=== PATIENT | female | born 1945 | race Caucasian/White ===

== ENCOUNTER → 2023-06-12 12:24 | Outpatient (REF) | payer OTHER, SELFPAY ==
[2023-06-12 13:45] LABS: HDL Cholesterol 40 mg/dl; LDL Cholesterol, Calculated 47 mg/dl; Total Cholesterol 105 mg/dl (50-199); Triglyceride 92 mg/dl (10-149); Very Low Density Lipoprotein 18 mg/dl (0-30)
== END ==
LOC: OLABN 12:24
PROVIDERS: ATTENDING PHYSICIAN Student in an Organized Health Care Education/Training Program
DX: E78.5 Hyperlipidemia, unspecified (principal)
CPT/HCPCS: 36415; 80061

== ENCOUNTER → 2023-07-24 11:50 | Outpatient (REF) | payer OTHER, SELFPAY ==
[2023-07-24 12:37] LABS: HDL Cholesterol 45 mg/dl; LDL Cholesterol, Calculated 55 mg/dl; Total Cholesterol 118 mg/dl (50-199); Triglyceride 94 mg/dl (10-149); Very Low Density Lipoprotein 18 mg/dl (0-30)
== END ==
LOC: OLABN 11:50
PROVIDERS: ATTENDING PHYSICIAN Student in an Organized Health Care Education/Training Program
DX: E78.5 Hyperlipidemia, unspecified (principal)
CPT/HCPCS: 36415; 80061

== ENCOUNTER → 2023-08-29 09:33 | Outpatient (REF) | payer OTHER, SELFPAY ==
[2023-08-29 10:34] LABS: HDL Cholesterol 45 mg/dl; LDL Cholesterol, Calculated 68 mg/dl; Total Cholesterol 131 mg/dl (50-199); Triglyceride 92 mg/dl (10-149); Very Low Density Lipoprotein 18 mg/dl (0-30)
== END ==
LOC: OLABN 09:33
PROVIDERS: ATTENDING PHYSICIAN Student in an Organized Health Care Education/Training Program
DX: E78.5 Hyperlipidemia, unspecified (principal)
CPT/HCPCS: 36415; 80061

== ENCOUNTER 2023-11-01 18:36 | Observation (INO) | payer MEDICARE, OTHER, SELFPAY ==
[2023-11-01] VITALS (21 sets, daily range): BP systolic 114–195; BP diastolic 56–116; PULSE 95–97
[2023-11-01 13:59] LABS: Glucose - Point of Care 82 mg/dl (70-99)
[2023-11-01 14:27] LABS: % Basophils 0.8 % (0-2); % Eosinophils 3.4 % (0-6); % Immature Granulocytes 0.4 % (0-0.5); % Lymphocytes 39.3 % (20.5-51.1); % Monocytes 8.6 % (1.7-9.3); % Neutrophils 47.5 % (42.2-75.2); Absolute Basophils 0.1 10^3/uL (0-0.2); Absolute Eosinophils 0.3 10^3/uL (0-0.7); Absolute Lymphocytes 3.6 10^3/uL (1.2-3.4); Absolute Monocytes 0.8 10^3/uL (0.1-0.6); Absolute Neutrophils 4.4 10^3/uL (1.4-6.5); Hematocrit 39.3 % (37.0-47.0); Hemoglobin 13.4 g/dL (12.0-16.0); Mean Corp Hgb Conc. 34.1 g/dL (33.0-37.0); Mean Corpuscular Hgb 30.2 pg (27.0-31.0); Mean Corpuscular Volume 88.5 fL (81.0-99.0); Mean Platelet Volume 10.4 fL (7.4-10.4); Nucleated Red Blood Cells % 0 %; Platelet Count 244 10^3/uL (130-400); Red Blood Cell Count 4.44 10^6/uL (4.20-5.40); Red Cell Dist. Width 13.1 % (11.5-14.5); White Blood Cell Count 9.2 10^3/uL (4.8-10.8)
[2023-11-01 14:33] LABS: Urine Albumin Trace (Neg - Trace); Urine Bilirubin Negative (Negative); Urine Character Slightly Cloudy (Clear); Urine Color Yellow; Urine Glucose Negative (Negative); Urine Ketone Negative (Negative); Urine Leukocyte 2+ (Negative); Urine Nitrite Negative (Negative); Urine Occult Blood 3+ (Negative); Urine Specific Gravity 1.015 (<1.030); Urine Urobilinogen Negative (Neg - 1+)
[2023-11-01 14:38] LABS: Urine Squamous Cell 0-2 /LPF (Few)
[2023-11-01 14:39] LABS: Urine Bacteria Moderate (Negative); Urine White Cell 50-60 /HPF (0-5)
[2023-11-01 14:47] LABS: Blood Urea Nitrogen 30 mg/dl (7-17); Carbon Dioxide 24 mmol/L (22-30); Chloride 106 mmol/L (98-107); Glucose 75 mg/dl (70-99); Sodium 138 mmol/L (135-145); eGFR > 60.00
--- NOTE | 2023-11-01 15:03 | ED.GENMED ---
History of Present Illness
General
Chief Complaint: Fainting/Passed Out
Source: family, ambulance crew and half-way records
Exam Limitations: dementia
Time Seen by Provider: 11/01/23 14:34
History of Present Illness
History of Present Illness:
78 Y/O F with h/o CVA L sided weakness, alzheimers dementia, dm, htn, CAD s/p PCI, CHF
here with confusion and possible syncope
pt was apparently in her wheelchair witnessed to have her head roll back and was unresponsive, apparently her hr dropped down low and she was incontinent, but has h/o incontiencne
here pt has eyes closed but arouses to stimuli and answers some questions
she offers noc omplaints
cannot recall what happened
she denies pain
pt has had similar episode previously when she had UTI in 07/2023
Past History
Past History
ED Past Medical History: CVA, HTN, Hypercholesterolemia and Other (Dementia)
ED Past Surgical History: None
Social History
Tobacco: Non-smoker
Alcohol: None
Review of Systems
Review of Systems
Allergies reviewed?: Yes
All Other Systems: Not applicable
Phy Exam
Physical Exam
Physical Exam:
GENERAL: Alert , in no apparent distress, spleeping, easily aroused; responds to some questions, does not follow all commands, selective
EYE: pupils equal and reactive
NECK: Supple
ENT: o/p clr, mmm.
CARDIAC: Regular rate and rhythm .
LUNGS: Clear breath sounds bilaterally, no acute respiratory distress, no wheezes/rales/rhonchi
ABDOMEN: Soft, without focal tenderness, no r/g, no cvat, normal bowel sounds
NEUROLOGICAL: Alert and oriented x 1, pt would not cooperate for some questions; L sided hemiplegia/weakness
SKIN: Warm and dry, skin intact.
MUSCULOSKELETAL: No edema, well perfused. neg joel's sign
PSYCH: Normal and appropriate interaction.
Course
Orders/Labs/Results
Orders:
Orders
11/01/23 14:11
Electrocardiogram (*1) Urgent
Reason for Study: Vertigo / Dizzy
11/01/23 14:12
EKG- Treatment ONCE
11/01/23 14:14
Basic Metabolic Panel Urgent
Complete Blood Count/With Diff Urgent
Urinalysis Reflex To Culture Urgent
Date Specimen was Collected: 11/01/23
Time Specimen was Collected: 14:13
Urine Microscopic Reflex Cult Urgent
Urine Culture Urgent
MING Source: U
Specimen Description:
Date Specimen was Collected: 11/01/23
Time Specimen was Collected: 14:13
11/01/23 15:11
CefTRIAXone [Rocephin] 1,000 mg IV NOW STA
11/01/23 15:14
Troponin I Urgent
11/01/23 15:51
Potassium Urgent
Abnormal Lab Results
11/01/23
14:14
Absolute Lymphs (auto) 3.6 H 10^3/uL
(1.2-3.4)
Absolute Monos (auto) 0.8 H 10^3/uL
(0.1-0.6)
BUN 30 H mg/dl
(7-17)
Ur Occult Blood Reflex 3+ A
(Negative)
Leukocyte Esterase Rfl 2+ A
(Negative)
Urine RBC 3-6 A /HPF
(0-2)
Urine WBC (Reflex) 50-60 A /HPF
(0-5)
Urine Bacteria (Reflex) Moderate A
(Negative)
11/01/23 14:14
11/01/23 15:51
Vital Signs
Initial and Last Documented VS:
Initial Vital Signs
Temp Pulse Resp BP Pulse Ox
97.5 F 91 16 124/98 98
11/01/23 13:56 11/01/23 13:56 11/01/23 13:56 11/01/23 13:56 11/01/23 13:56
Last Documented Vital Signs
Temp Pulse Resp BP Pulse Ox
97.5 F 73 14 133/71 97
11/01/23 13:56 11/01/23 16:15 11/01/23 16:15 11/01/23 16:15 11/01/23 16:15
MDM/Problems Addressed
Differential Diagnosis Includes:
syncope, uti, sepsis, dysrhythmia
MDM/Problems Addressed:
8 y/o F from [facility], witnessed syncope while in chair, bradycardic following it p0er EMS,
pt has dementia, is at baseline, normal vitals now;
ekg with RBBB and some t wave inv which appear chronic when i look back to previous EKG (not most recent but prior)
trop neg
straight cath urine + for inection
pt has had previous TME wih UTI before
will admit, iv abx, tele
daughter at bedside, consents to admission
*Critical Care Note
Total Time (30-74mins, 75-104mins- exclusive of procedures): Not Applicable
ED Attending Note
-
Portions of this chart may have been created with voice recognition software.� Occasional wrong word or��sound alike� substitutions may have occurred due to the inherent limitations of voice recognition software.
Discharge Plan
Departure
Patient Disposition: Admit
Date of Disposition: 11/01/23
Time of Disposition: 16:22
Admit to: Telemetry
Presentation/result/management discussed w/ accepting MD/DO: Hospitalist
Condition: Fair
Covid-19: Not Applicable
Discharge Problem:
Syncope, UTI (urinary tract infection)
Prescriptions:
No Action
acetaminophen 325 MG tablet
650 mg PO Q4HPRN PRN (Reason: mild pain/fever>100.4)
clopidogrel 75 MG tablet
75 mg PO DAILY
magnesium hydroxide 30 ML suspension
30 ml PO HSPRN PRN (Reason: lack of bm)
bisacodyl [OneLAX Bisacodyl] 10 MG suppository
10 mg WA DAILYPRN PRN (Reason: if mom ineffective)
memantine 10 MG tablet
10 mg PO DAILY
duloxetine 30 MG capsule,delayed release(DR/EC)
30 mg PO DAILY
diclofenac sodium 100 GRAM/TUBE gel
1 applic topical BID
atorvastatin 40 MG tablet
40 mg PO QPM 0RF
acetaminophen 650 MG suppository
650 mg WA Q4HPRN PRN (Reason: BUTTS, mild pain, or temp >100.4F) 0RF
famotidine 20 MG tablet
20 mg PO DAILY
metoprolol tartrate 50 MG tablet
25 mg PO BID
insulin lispro 100 UNIT/ML solution
0 unit SC .SLIDING SCALE QID
cefdinir 300 MG capsule
300 mg PO Q12 Qty: 8 0RF
furosemide 20 MG tablet
20 mg PO MOWEFR Qty: 0 0RF
insulin glargine [Lantus Solostar U-100 Insulin] 300 UNITS/3 ML insulin pen
10 units SC HS Qty: 0 0RF
Referrals:
Oscar Turner DO [Family Provider] -
Interventions
Interventions:
*Risk Screen - Suicide Last Done: 11/01/23 13:56
*General Assessment Last Done: 11/01/23 13:56
*Neglect/Abuse Screening Last Done: 11/01/23 13:56
ED- Cardiac Assessment Last Done: 11/01/23 14:27
ED- Neurological Assessment Last Done: 11/01/23 14:27
Discharge Date and Time
Print Language: CZECH
[2023-11-01] MEDS: ROCEPHIN 1000 MG IV (15:14)
--- NOTE | 2023-11-01 15:20 | PHANOTE ---
MED REC NOTE- Spoke Etelvina at [facility], she going to fax patient medication list over
[2023-11-01 16:16] LABS: Potassium 4.1 mmol/L (3.5-5.1)
[2023-11-01 16:38] LABS: Troponin I < 0.012 ng/ml
--- NOTE | 2023-11-01 18:17 | HPS.HSE ---
Family Physician
-
Family Physician: Oscar Turner DO
Chief Complaint
-
Syncope episode
History of Present Illness
Patient is 78-year-old female with past medical history of CVA, dementia, type 2 diabetes, essential hypertension, congestive diastolic congestive heart failure, hyperlipidemia was sent in from alf after was noted to having witnessed
syncope. Patient dementia unable to provide any detail no family at bedside providing any history. According to ER documentation patient was sitting in wheelchair when patient had rolled backward and was unresponsive for unknown period of time.
Heart rate was noted to be low and having some incontinence. Patient was able to regain consciousness afterward.
Patient resting comfortably in bed and not able to provide any information as mentioned above
Medical History
Past Medical History
Past Medical History: Reports Other
Additional Past Medical History:
history of CVA, dementia, type 2 diabetes, essential hypertension, congestive diastolic congestive heart failure, hyperlipidemia
Past Surgical History: Reports Other
Social History
Unable to obtain full social history at this time due to: Other (Dementia)
Family History
Family History: Unable to Obtain (Dementia)
Allergies / Home Medications
Allergies reflects when Allergies were last updated in [employer].
Home Medications with original date entered in [employer]
Allergy/Medication List:
Allergies
Allergy/AdvReac Type Severity Reaction Status Date / Time
Penicillins Allergy Rash Verified 08/07/21 13:12
Home Medications
acetaminophen 325 mg tablet 650 mg PO Q4HPRN PRN mild pain/fever>100.4 07/13/21
bisacodyl 10 mg rectal suppository (OneLAX Bisacodyl) 10 mg MO DAILYPRN PRN if mom ineffective 07/13/21
clopidogrel 75 mg tablet 75 mg PO DAILY Blood clot prevention/tx 07/13/21
diclofenac sodium 1 % topical gel 1 applic topical BID both knees FOR PAIN 07/13/21
duloxetine 30 mg capsule,delayed release 30 mg PO DAILY Mental Health/Anxiety 07/13/21
magnesium hydroxide 400 mg/5 mL oral suspension 30 ml PO HSPRN PRN lack of bm 07/13/21
memantine 10 mg tablet 10 mg PO DAILY Mental Health/Anxiety 07/13/21
acetaminophen 650 mg rectal suppository 650 mg MO Q4HPRN PRN BUTTS, mild pain, or temp >100.4F 07/17/21
atorvastatin 40 mg tablet 40 mg PO QPM 07/17/21
famotidine 20 mg tablet 20 mg PO DAILY Gastrointestinal issue 08/07/21
insulin lispro 100 unit/mL subcutaneous solution 0 unit SC .SLIDING SCALE QID Diabetes 08/07/21
metoprolol tartrate 50 mg tablet 25 mg PO BID Blood pressure 08/07/21
cefdinir 300 mg capsule 300 mg PO Q12 #8 caps 08/10/21
furosemide 20 mg tablet 20 mg PO MOWEFR Fluid retention/Swelling ##0 08/10/21
insulin glargine 100 unit/mL (3 mL) subcutaneous pen (Lantus Solostar U-100 Insulin) 10 units (0.1 mL) SC HS Diabetes ##0 08/10/21
Review of Systems
-
Unable to obtain full review of systems at this time due to: Dementia
Physical Exam
Vital Signs
Vital Signs
Temp Pulse Resp BP Pulse Ox
97.5 F 89 18 138/94 96
11/01/23 13:56 11/01/23 17:45 11/01/23 17:45 11/01/23 17:45 11/01/23 17:30
Physical Exam
General: No Apparent Distress
HEENT: NormoCephalic, Moist mucous membranes and Atraumatic
Respiratory: Clear
Cardiac: S1/S2 and Regular Rhythm; No Murmur or Rub
GI: Soft, Non Tender, Non Distended and Normal Bowel Sounds; No Organomegaly
Musculoskeletal: No Clubbing and No Cyanosis
Skin: No Rash
Neuro: Awake, Alert, Oriented and Nonfocal/grossly intact
Laboratory Results
-
11/01/23 14:14
11/01/23 15:51
Laboratory Results
Total Bilirubin Cancelled 11/01/23 14:14
AST Cancelled 11/01/23 14:14
ALT Cancelled 11/01/23 14:14
Alkaline Phosphatase Cancelled 11/01/23 14:14
Troponin I < 0.012 ng/ml 11/01/23 15:14
Impression/Plan
-
1. Syncope
-Patient had syncope, presuming brief while sitting in wheelchair.
-Reported heart rate to be slow at the time
-Patient on metoprolol hold for the night
-Check orthostatic vitals for supine and sitting position
-Monitor on telemetry overnight
2. Type II DM
-Maintain on insulin sliding scale
3. Chronic diastolic ingestive heart failure
-No signs of exacerbation
-continue lasix home dose
dementia
Essential HTN
hyperlipidemia
DVT PPX -heparin subq
Full code
Total time spent : 77 mins
I personally saw and examined the patient.
I have reviewed all diagnostic interpretations and treatment plans as written.
Time includes patient management by me, time spent at the patients bedside, time to review lab and imaging results, discussing patient care, documentation in the medical record, and time spent with the family or caregiver and discussing care plan
with RN/Consultants.
[2023-11-01 21:44] LABS: Glucose - Point of Care 169 mg/dl (70-99)
[2023-11-01] MEDS: HEPARIN 5000 UNITS SC (21:52)
[2023-11-01] MEDS: LANTUS 0.1 UNITS SC (21:52)
[2023-11-02] VITALS (8 sets, daily range): BP systolic 104–164; BP diastolic 52–86; PULSE 81–90
[2023-11-02 06:01] LABS: Hematocrit 34.2 % (37.0-47.0); Mean Corp Hgb Conc. 35.1 g/dL (33.0-37.0); Mean Corpuscular Hgb 30.4 pg (27.0-31.0); Mean Corpuscular Volume 86.6 fL (81.0-99.0); Mean Platelet Volume 10.6 fL (7.4-10.4); Platelet Count 225 10^3/uL (130-400); Red Blood Cell Count 3.95 10^6/uL (4.20-5.40); Red Cell Dist. Width 13.1 % (11.5-14.5); White Blood Cell Count 7.1 10^3/uL (4.8-10.8)
[2023-11-02 06:14] LABS: Blood Urea Nitrogen 25 mg/dl (7-17); Calcium 9.6 mg/dl (8.4-10.2); Carbon Dioxide 26 mmol/L (22-30); Chloride 106 mmol/L (98-107); Estimated Creatinine Clearance 55 ml/min; Glucose 115 mg/dl (70-99); Potassium 4.1 mmol/L (3.5-5.1); Sodium 137 mmol/L (135-145); eGFR > 60.00
[2023-11-02 07:58] LABS: Glucose - Point of Care 132 mg/dl (70-99)
[2023-11-02] MEDS: NOVOLOG FLEXPEN-LOW RESISTANCE SC (08:01)
[2023-11-02] MEDS: PEPCID 20 MG PO (08:18)
[2023-11-02] MEDS: HEPARIN 5000 UNITS SC ×2 (08:18→21:47)
[2023-11-02] MEDS: CYMBALTA DELAYED RELEASE 30 MG PO (08:19)
[2023-11-02] MEDS: NAMENDA 10 MG PO (08:19)
[2023-11-02] MEDS: PLAVIX 75 MG PO (08:19)
[2023-11-02 11:38] LABS: Glucose - Point of Care 230 mg/dl (70-99)
[2023-11-02] MEDS: NOVOLOG FLEXPEN-LOW RESISTANCE 2 UNITS SC (11:54)
--- NOTE | 2023-11-02 12:30 | W.PN.HOSP.TC ---
Addendum entered and electronically signed by Kevin Michel MD 11/02/23 12:41:
Seizures
-Patient had 1 more episode in the past when patient was sitting in wheelchair and similar episode of passing out happened
-Suspected seizure activity although no true GTCS is reported.
-Patient does have history of CVA and makes her prone to have CVA.
-Patient was having very infrequent episode and due to potential side effects did not wanted to be put on AED.
-I have discussed with daughter to follow-up with neurology in outpatient basis if patient have more frequent suspected seizure episode. She understands and agrees with the plan.
H/o CVA
-And had some residual weakness although did not able to regain full ambulatory capacity
-remains in wheelchair most of the time in facility
-will discontinue PT/OT eval if facility doesnt require before discharge.
Discussed with Daughter at Bedside.
Original Note:
Today's Communication/Plan
-
See note
Possible discharge to group home back again
Assessment / Plan
Assessment / Plan
1. Syncope
-Patient had syncope, presuming brief while sitting in wheelchair.
-Reported heart rate to be slow at the time in the group home
-Telemetry events reviewed, patient having sinus tachycardia, likely beta dorcas withdrawal. Resume back on home dose of Lopressor and monitor through night
-Continue checking orthostatic vitals from supine to sitting position. Last check was normal.
2. Type II DM
-Resume back on Lantus/Premeal NovoLog regimen from group home
-Maintain on insulin sliding scale
3. Chronic diastolic ingestive heart failure
-No signs of exacerbation
-continue lasix home dose
dementia
Essential HTN
hyperlipidemia
DVT PPX -heparin subq
Full code
Anticipated Discharge: Within 24 hours
Subjective/Interval History
-
Date of Service: November 02, 2023
No acute events reported overnight
Patient minimally tachycardic
Patient remains pleasantly disoriented
Objective Data
-
Labs:
Laboratory Results
11/02/23
05:18
WBC 7.1
Hgb 12.0
Hct 34.2 L
Plt Count 225
Sodium 137
Potassium 4.1
Chloride 106
Carbon Dioxide 26
BUN 25 H
Creatinine 0.8
Glucose 115 H
Calcium 9.6
Vital Signs:
Vital Signs
Temp Pulse Resp BP Pulse Ox
99.0 F 99 18 155/86 99
11/02/23 11:00 11/02/23 11:00 11/02/23 11:00 11/02/23 11:00 11/02/23 11:00
I&O
11/01/23 11/02/23 11/03/23
06:59 06:59 06:59
Intake Total 480 / 480
Balance 480 / 480
Review of Systems
-
Unable to obtain full review of systems at this time due to: Dementia
Physical Exam
-
General: No Apparent Distress and Comfortable
HEENT: Negative Oxygen
Respiratory: Clear to Auscultation
Cardiac: Regular Rhythm and S1/S2; Negative Murmur or Rub
GI: Soft, Nontender, Nondistended and Normal Bowel Sounds
Musculoskeletal: No Edema
Neuro: Awake, Alert, No Motor Deficits and Nonfocal/Grossly Intact
Psych: Calm
--- NOTE | 2023-11-02 12:53 | CM ---
Patient seen bedside.
LTC resident at [facility].
Per nurse on floor, patient is assist of 2 with a mechanical lift to .
Fees herself.
Confused.
Spoke with daughter bedside.
Per daughter her mother had PT/OT after her stroke but really did not progress and was stopped for safety reasons.
Perr daughter WC bound, does not ambulate.
Spoke with [facility], ok to transfer back tomorrow.
No auth needed if no skilled needs.
ANGEL form completed.
PCP: Dr Turner
Plan: back to [facility]
Report# [phone]
[2023-11-02] MEDS: LOPRESSOR 25 MG PO ×2 (13:00→21:47)
[2023-11-02] MEDS: ROCEPHIN 1000 MG IV (13:00)
[2023-11-02] MEDS: STERILE WATER FOR INJECTION 10 ML IV (13:01)
[2023-11-02 16:33] LABS: Glucose - Point of Care 194 mg/dl (70-99)
[2023-11-02] MEDS: NOVOLOG FLEXPEN-LOW RESISTANCE 1 UNITS SC (16:38)
[2023-11-02] MEDS: LIPITOR 40 MG PO (16:38)
[2023-11-02] MEDS: NOVOLOG vial 5 UNITS SC (16:40)
[2023-11-02 21:30] LABS: Glucose - Point of Care 165 mg/dl (70-99)
[2023-11-02] MEDS: LANTUS 0.12 UNITS SC (21:47)
[2023-11-03 03:00] VITALS: BP 150/96
[2023-11-03 06:00] VITALS: BMI 32.5
[2023-11-03 06:54] LABS: Glucose - Point of Care 167 mg/dl (70-99)
[2023-11-03] MEDS: NOVOLOG FLEXPEN-LOW RESISTANCE 1 UNITS SC ×2 (07:51→13:08)
[2023-11-03] MEDS: NOVOLOG vial 5 UNITS SC (07:51)
[2023-11-03] MEDS: PEPCID 20 MG PO (07:52)
[2023-11-03] MEDS: NAMENDA 10 MG PO (07:52)
[2023-11-03] MEDS: PLAVIX 75 MG PO (07:52)
[2023-11-03] MEDS: LOPRESSOR 25 MG PO (07:52)
[2023-11-03] MEDS: HEPARIN 5000 UNITS SC (07:53)
[2023-11-03 07:54] VITALS: BP 164/91
[2023-11-03 08:07] LABS: Blood Urea Nitrogen 27 mg/dl (7-17); Calcium 9.8 mg/dl (8.4-10.2); Carbon Dioxide 23 mmol/L (22-30); Chloride 103 mmol/L (98-107); Estimated Creatinine Clearance 56 ml/min; Glucose 154 mg/dl (70-99); Potassium 4.3 mmol/L (3.5-5.1); Sodium 136 mmol/L (135-145); eGFR > 60.00
[2023-11-03] MEDS: CYMBALTA DELAYED RELEASE 30 MG PO (09:03)
--- NOTE | 2023-11-03 11:25 | CM ---
Addendum entered by Myah Maldonado 11/03/23 12:14:
Nursing with multiple attempts to call report to [facility] [phone], , , and nursing supervisor inspection department [phone]. Nursing supervisor inspection department to have facility nurse to call hospital for report.
Nursing supervisor inspection department aware of 1:30 burr picker time.
Addendum entered by Myah Maldonado 11/03/23 11:36:
Daughter updated re transport time 1:30 pm.
Original Note:
Plan: back to [facility] LTC today
Ambulance transport forms on chart.
[facility]
Report# [phone]
--- NOTE | 2023-11-03 11:30 | W.PN.HOSP.TC ---
Addendum entered and electronically signed by Kevin Michel MD 11/03/23 12:05:
Allegic to penicillin, if any true concerning sepsis signs develops, will require course of clindamycin
Addendum entered and electronically signed by Kevin Michel MD 11/03/23 12:03:
Lactobacillus UTI
-was getting rocephin her
-will give augmentin 3 days on dischage
Original Note:
Today's Communication/Plan
-
d/c NH
Assessment / Plan
Assessment / Plan
1. Syncope
-Possible bradycardia vs seizure
-Patient had syncope, presuming brief while sitting in wheelchair.
-Reported heart rate to be slow at the time in the residential
-Telemetry events reviewed, patient having sinus tachycardia, likely beta dorcas withdrawal. Resumed back on home dose of Lopressor and monitor through night
-Continue checking orthostatic vitals from supine to sitting position. Last check was normal.
2. Type II DM
-Resume back on Lantus/Premeal NovoLog regimen from residential
-Maintain on insulin sliding scale
3. Chronic diastolic ingestive heart failure
-No signs of exacerbation
-continue lasix home dose
4. HTN urgency
-BP better on repeat check
-IV hydralazine 5mg x1
dementia
Essential HTN
hyperlipidemia
DVT PPX -heparin subq
Full code
Anticipated Discharge: Today
Subjective/Interval History
-
Date of Service: November 03, 2023
no issues overnight
resting comfortably in bed
Objective Data
-
Labs:
Laboratory Results
11/03/23
06:11
Sodium 136
Potassium 4.3
Chloride 103
Carbon Dioxide 23
BUN 27 H
Creatinine 0.8
Glucose 154 H
Calcium 9.8
Vital Signs:
Vital Signs
Temp Pulse Resp BP Pulse Ox
97.7 F 80 16 164/91 95
11/03/23 07:54 11/03/23 07:54 11/03/23 07:54 11/03/23 07:54 11/03/23 07:54
I&O
11/02/23 11/03/23 11/04/23
06:59 06:59 06:59
Intake Total 480 / 480 1420 / 1420
Balance 480 / 480 1420 / 1420
Review of Systems
-
Respiratory: Reports No Symptoms
Cardiac: Reports No Symptoms
Abdomen/GI: Reports No Symptoms
Physical Exam
-
General: No Apparent Distress and Comfortable
HEENT: Negative Oxygen
Respiratory: Clear to Auscultation
Cardiac: Regular Rhythm and S1/S2; Negative Murmur or Rub
GI: Soft, Nontender, Nondistended and Normal Bowel Sounds
Musculoskeletal: No Edema
Neuro: Awake, Alert, No Motor Deficits and Nonfocal/Grossly Intact
Psych: Calm
[2023-11-03 11:45] LABS: Glucose - Point of Care 150 mg/dl (70-99)
[2023-11-03] MEDS: APRESOLINE 5 MG IV (12:18)
[2023-11-03] MEDS: ROCEPHIN 1000 MG IV (12:18)
[2023-11-03] MEDS: STERILE WATER FOR INJECTION 10 ML IV (12:18)
[2023-11-03] MEDS: NOVOLOG FLEXPEN 5 UNITS SC (13:08)
--- NOTE | 2023-11-03 16:18 | W.DCSUMMARY ---
Discharge Summary
Discharge Data
Date of Admission: 11/01/23
Date of Discharge: 11/03/23
-
Pending Results: No
Hospital Course
Discharging Physician : Dr Kevin Michel
Disposition : [facility]
Primary care physician : Dr Oscar Turner
Principal Discharge diagnosis :
Brief syncope possible medication related bradycardia versus vasovagal in nature
Lactobacilli urinary tract infection
Chronic Discharge diagnosis :
Type 2 diabetes mellitus
Chronic diastolic congestive heart failure
Essential hypertension
Dementia
Hyperlipidemia
Hospital Course :
Patient is a 78-year-old female with above-mentioned past medical history was sent from [facility] after patient was witnessed to have short syncope episode while sitting in wheelchair. Patient apparently was sitting upright in wheelchair when
lost consciousness and regained it after some time. Patient heart rate was noted to be low according to [facility] report. In ER patient was back to baseline and was admitted for monitoring overnight. Patient is on metoprolol with history of
hypertension and was felt to be may be causing episode of bradycardia. Patient was taken off of metoprolol with which patient had some withdrawal tachycardia next day. Patient was resumed back on metoprolol and was monitored overnight. No
telemetry event with resumption of medication. Patient also have questionable history of seizure according to daughter, I have advised daughter to follow-up with neurology in office if continues to have unexplained brief syncope episode. No GTCS
has been reported.
Patient also had some moderate pyuria and bacteriuria, patient unable to provide history regarding dysuria/pain with underlying dementia. Patient was maintained on empiric Rocephin and later urine culture growing lactobacillus. Patient could not
be prescribed penicillin therapy due to allergy and clindamycin was avoided due to no clear complicating factors with questionable UTI.
Patient was discharged [facility] as no other ongoing active medical issues.
Important imaging findings :
None
Procedure findings :
None
Discharge Plan
-
Patient Disposition: Care Home/SNF
Discharge Diagnosis/Procedures: Syncope, HTN urgency
Condition: Fair
Diet: Diabetic, Carb Controlled
Activity: As tolerated
Driving Restrictions: No driving
Bathing Restrictions: OK to Shower
Referrals:
Oscar Turner DO [Family Provider] - in one week
Prescriptions:
Continued
acetaminophen 325 MG tablet
650 mg PO Q4HPRN PRN (Reason: mild pain/fever>100.4)
clopidogrel 75 MG tablet
75 mg PO DAILY
magnesium hydroxide 30 ML suspension
30 ml PO HSPRN PRN (Reason: lack of bm)
bisacodyl [OneLAX Bisacodyl] 10 MG suppository
10 mg AL DAILYPRN PRN (Reason: if mom ineffective)
atorvastatin 40 MG tablet
40 mg PO QPM 0RF
acetaminophen 650 MG suppository
650 mg AL Q4HPRN PRN (Reason: BUTTS, mild pain, or temp >100.4F) 0RF
famotidine 20 MG tablet
20 mg PO DAILY
metoprolol tartrate 50 MG tablet
25 mg PO 08,1829
furosemide 20 MG tablet
20 mg PO MOWEFR Qty: 0 0RF
polyethylene glycol 3350 [Miralax] 17 gram Powder In Packet
17 g PO Q OTHER DAY
Rx Instructions:
every other day
sennosides-docusate sodium [Senna with Docusate Sodium] 8.6-50 mg Tablet
2 tab-cap PO DAILY
insulin glargine [Lantus Solostar U-100 Insulin] 100 unit/mL (3 mL) Insulin Pen
12 unit SC HS
insulin aspart (niacinamide) 100 unit/mL (3 mL) Insulin Pen
7 unit SC 0830,1230,1830
insulin aspart (niacinamide) 100 unit/mL (3 mL) Insulin Pen
0 unit SC 0730,1130,1830,2029
Rx Instructions:
per sliding scale
glucagon 1 mg Kit
1 mg IM DAILY PRN (Reason: hypoglycemia)
Discharge Orders:
Discharge Patient (As Directed); Ordered 11/03/23
Ordered By: Kevin Michel
Discharge Date and Time
Discharge Date/Time: 11/03/23 14:03
Print Language: IRISH
== END 2023-11-03 14:03 ==
LOC: 4 WEST ACU 18:36
PROVIDERS: Physician Assistant; ADMITTING PHYSICIAN Hospitalist; EMERGENCY PHYSICIAN Emergency Medicine; FAMILY PHYSICIAN Student in an Organized Health Care Education/Training Program
DX: R55 Syncope and collapse (principal); I16.0 Hypertensive urgency; N39.0 Urinary tract infection, site not specified; R00.0 Tachycardia, unspecified; R42 Dizziness and giddiness; B96.89 Other specified bacterial agents as the cause of diseases classified elsewhere; I45.10 Unspecified right bundle-branch block; I69.354 Hemiplegia and hemiparesis following cerebral infarction affecting left non-dominant side; G30.9 Alzheimer's disease, unspecified; F02.80 Dementia in other diseases classified elsewhere, unspecified severity, without behavioral disturbance, psychotic disturbance, mood disturbance, and anxiety; I25.10 Atherosclerotic heart disease of native coronary artery without angina pectoris; I11.0 Hypertensive heart disease with heart failure; E11.9 Type 2 diabetes mellitus without complications; I50.32 Chronic diastolic (congestive) heart failure; E78.5 Hyperlipidemia, unspecified; Z79.02 Long term (current) use of antithrombotics/antiplatelets; Z95.5 Presence of coronary angioplasty implant and graft; Z87.440 Personal history of urinary (tract) infections; Z79.4 Long term (current) use of insulin; Z88.0 Allergy status to penicillin
CPT/HCPCS: 80048; 81003; 81015; 82962; 84132; 84484; 85025; 85027; 87070; 87086; 93005; 96374; 99285; G0378

== ENCOUNTER → 2023-11-27 09:46 | Outpatient (REF) | payer MEDICARE, OTHER, SELFPAY ==
[2023-11-27 14:24] LABS: Glycohemoglobin (HgbA1c) 7.5 % (4.0-5.6)
== END ==
LOC: OLABN 09:46
PROVIDERS: ATTENDING PHYSICIAN Student in an Organized Health Care Education/Training Program
DX: E11.9 Type 2 diabetes mellitus without complications (principal)
CPT/HCPCS: 36415; 83036

== ENCOUNTER → 2024-04-20 11:20 | Outpatient (REF) | payer MEDICARE, OTHER, SELFPAY ==
[2024-04-20 15:29] LABS: Blood Urea Nitrogen 23 mg/dl (7-17); Calcium 9.1 mg/dl (8.4-10.2); Carbon Dioxide 23 mmol/L (22-30); Chloride 103 mmol/L (98-107); Glucose 176 mg/dl (70-99); Magnesium 1.9 mg/dl (1.6-2.3); Potassium 4.3 mmol/L (3.5-5.1); Sodium 134 mmol/L (135-145); eGFR > 60.00
== END ==
LOC: OLABN 11:20
PROVIDERS: ATTENDING PHYSICIAN Student in an Organized Health Care Education/Training Program
DX: I50.22 Chronic systolic (congestive) heart failure (principal)
CPT/HCPCS: 36415; 80048; 83735

== ENCOUNTER → 2024-05-27 10:17 | Outpatient (REF) | payer MEDICARE, OTHER, SELFPAY ==
[2024-05-27 11:38] LABS: Glycohemoglobin (HgbA1c) 8.4 % (4.0-5.6)
== END ==
LOC: OLABN 10:17
PROVIDERS: ATTENDING PHYSICIAN Student in an Organized Health Care Education/Training Program
DX: E11.9 Type 2 diabetes mellitus without complications (principal)
CPT/HCPCS: 36415; 83036

== ENCOUNTER → 2024-09-16 10:55 | Outpatient (REF) | payer MEDICARE, OTHER, SELFPAY ==
[2024-09-16 12:08] LABS: HDL Cholesterol 42 mg/dl; LDL Cholesterol, Calculated 44 mg/dl; Total Cholesterol 99 mg/dl (50-199); Triglyceride 66 mg/dl (10-149); Very Low Density Lipoprotein 13 mg/dl (0-30)
== END ==
LOC: OLABN 10:55
PROVIDERS: ATTENDING PHYSICIAN Student in an Organized Health Care Education/Training Program
DX: E78.5 Hyperlipidemia, unspecified (principal)
CPT/HCPCS: 36415; 80061

== ENCOUNTER → 2024-10-03 07:38 | Outpatient (REF) | payer MEDICARE, OTHER, SELFPAY ==
[2024-10-03 09:30] LABS: Blood Urea Nitrogen 27 mg/dl (7-17); Calcium 9.5 mg/dl (8.4-10.2); Carbon Dioxide 24 mmol/L (22-30); Chloride 109 mmol/L (98-107); Glucose 219 mg/dl (70-99); Iron 57 ug/dl (37-170); Magnesium 1.8 mg/dl (1.6-2.3); Potassium 4.1 mmol/L (3.5-5.1); Sodium 140 mmol/L (135-145); eGFR > 60.00
[2024-10-03 09:39] LABS: Percent Saturation 18 % (20-50); Total Iron Binding Capacity 302 ug/dl (265-497)
[2024-10-03 09:58] LABS: Hematocrit 36.1 % (37.0-47.0); Hemoglobin 12.3 g/dL (12.0-16.0); Mean Corp Hgb Conc. 34.1 g/dL (33.0-37.0); Mean Corpuscular Hgb 30.9 pg (27.0-31.0); Mean Corpuscular Volume 90.7 fL (81.0-99.0); Mean Platelet Volume 11.4 fL (7.4-10.4); Platelet Count 199 10^3/uL (130-400); Red Blood Cell Count 3.98 10^6/uL (4.20-5.40); Red Cell Dist. Width 12.5 % (11.5-14.5); White Blood Cell Count 7.7 10^3/uL (4.8-10.8)
[2024-10-03 10:04] LABS: Ferritin 32.3 ng/ml (11.1-264.0)
== END ==
LOC: OLABN 07:38
PROVIDERS: ATTENDING PHYSICIAN Student in an Organized Health Care Education/Training Program
DX: I10 Essential (primary) hypertension (principal); E66.811 Obesity, class 1; Z79.4 Long term (current) use of insulin; I50.30 Unspecified diastolic (congestive) heart failure
CPT/HCPCS: 36415; 80048; 82728; 83540; 83550; 83735; 85027

== ENCOUNTER → 2024-11-25 10:01 | Outpatient (REF) | payer MEDICARE, OTHER, SELFPAY ==
[2024-11-25 13:56] LABS: Glycohemoglobin (HgbA1c) 7.8 % (4.0-5.6)
== END ==
LOC: OLABN 10:01
PROVIDERS: ATTENDING PHYSICIAN Student in an Organized Health Care Education/Training Program
DX: E11.9 Type 2 diabetes mellitus without complications (principal)
CPT/HCPCS: 36415; 83036